=== PATIENT | female | born 1960 | race African-American/Black ===

== ENCOUNTER 2020-10-15 22:22 | Emergency (ER) | payer MEDICAID, OTHER ==
[~2020-10-15] VITALS: Ht 170.2 cm; Wt 82.0 kg
[2020-10-15] MEDS ORDERED: ALBUTEROL (0.083%) 2.5MG/3ML NEB HHN STA (22:44)
[2020-10-15] MEDS ORDERED: IPRATROPIUM BROMIDE (0.02%) 0.5MG/2.5ML NEB HHN STA (22:44)
[2020-10-15] MEDS ORDERED: PREDNISONE 20MG TABLET PO STA (22:44)
[2020-10-16] MEDS ORDERED: P50 MT (02:47)
[2020-10-16] MEDS ORDERED: ALBU6.7H9 INH (02:47)
[2020-10-16] MEDS ORDERED: AZIT500T8 MT (02:48)
[2020-10-16 03:34] VITALS: BP 107/65
== END 2020-10-16 03:35 | disposition home or self-care (01) ==
LOC: ER 22:32
DX: J45.909 Unspecified asthma, uncomplicated (principal); Z79.899 Other long term (current) drug therapy
CPT/HCPCS: 93005; 94640; 99285; J7512; Z7610